=== PATIENT | male | born 1985 | race Asian ===

== ENCOUNTER 2024-09-17 17:14 | Emergency (ER) | payer MEDICAID ==
[~2024-09-17] VITALS: Ht 182.9 cm; Wt 75.0 kg
[2024-09-17 17:23] VITALS: O2SAT 98
[2024-09-17] MEDS: FAMOTIDINE 20MG/2ML VIAL IV ONE (17:45)
[2024-09-17] MEDS: ONDANSETRON HCL 4MG/2ML INJ IV ONE (17:45)
[2024-09-17 18:15] LABS: BASOPHILS % 0.9 % (0.0-2.0); EOSINOPHILS % 1.7 % (0.0-5.0); HEMATOCRIT. 48.2 % (42.0-52.0); HEMOGLOBIN. 16.9 g/dL (14.0-18.0); LYMPHOCYTES % 24.8 % (20.0-50.0); MEAN PLATELET VOLUME 9.1 fl (7.4-10.4); MONOCYTES % 6.6 % (2.0-8.0); NEUTROPHILS % 66.0 % (40.0-76.0); PLATELET 163 x1000/uL (130-400); RED BLOOD CELL COUNT 5.56 mill/uL (4.7-6.1); RED CELL DISTRIBUTION WIDTH 13.1 % (11.6-14.6)
[2024-09-17 18:27] LABS: INR 1.0
[2024-09-17 18:31] LABS: CREATININE 1.0 mg/dL (0.6-1.3)
[2024-09-17 18:32] LABS: UREA NITROGEN BLOOD < 5 mg/dL (9-23)
[2024-09-17 18:33] LABS: ASPARTATE AMINOTRANSFERASE 51 IU/L (<34); TROPONIN I HIGH SENSITIVITY < 4 ng/L (3.0-53)
[2024-09-17 18:34] LABS: BILIRUBIN DIRECT 0.7 mg/dL (<=3.0); BILIRUBIN TOTAL 2.1 mg/dL (0.1-1.0); PROTEIN TOTAL 7.2 g/dL (6.0-8.3)
[2024-09-17] MEDS: SODIUM CHLORIDE 0.9% 1,000 ML IV ONE (18:49)
[2024-09-17 20:52] LABS: CLARITY URINE CLEAR (CLEAR); COLOR URINE YELLOW (YELLOW); GLUCOSE URINE NEGATIVE (NEGATIVE); KETONES URINE 1+ (NEGATIVE); LEUKOCYTE ESTERASE URINE NEGATIVE (NEGATIVE); NITRITE URINE NEGATIVE (NEGATIVE); OCCULT BLOOD URINE NEGATIVE (NEGATIVE); PH URINE 6.0 (4.5-8.0); PROTEIN URINE NEGATIVE (NEGATIVE); SPECIFIC GRAVITY URINE 1.003 (1.005-1.030); UROBILINOGEN URINE 1.0 E.U./dL (0.2-1.0)
[2024-09-17 20:54] VITALS: TEMP 36.9
[2024-09-17] MEDS ORDERED: MAG355OR21 MT (23:12)
[2024-09-17] MEDS ORDERED: FAMO40TA70 MT (23:12)
[2024-09-17 23:25] VITALS: BP 116/77; PULSE 79; RESP 12; O2SAT 98
== END 2024-09-17 23:33 | disposition home or self-care (01) ==
LOC: ER 17:14
DX: K29.70 Gastritis, unspecified, without bleeding (principal); K21.9 Gastro-esophageal reflux disease without esophagitis; Z88.6 Allergy status to analgesic agent
CPT/HCPCS: 99291; 74176; 96374; 96361; 96375; 80076; 80048; 81003; 83690; 85025; 85610; 85730; 84484; 36415; 71045; 93005; J1308; J2405

== ENCOUNTER 2024-09-24 05:29 | Emergency (ER) | payer MEDICAID ==
[~2024-09-24] VITALS: Ht 182.9 cm; Wt 84.3 kg
[~2024-09-24 05:29] MED LIST: FAMO40TA70 MT; MAG355OR21 MT
[2024-09-24 05:34] VITALS: O2SAT 99
[2024-09-24 05:57] VITALS: TEMP 36.5
[2024-09-24 06:03] LABS: BASOPHILS % 0.9 % (0.0-2.0); EOSINOPHILS % 3.0 % (0.0-5.0); HEMATOCRIT. 47.6 % (42.0-52.0); HEMOGLOBIN. 16.6 g/dL (14.0-18.0); LYMPHOCYTES % 29.8 % (20.0-50.0); MEAN PLATELET VOLUME 9.4 fl (7.4-10.4); MONOCYTES % 7.9 % (2.0-8.0); NEUTROPHILS % 58.4 % (40.0-76.0); PLATELET 167 x1000/uL (130-400); RED BLOOD CELL COUNT 5.51 mill/uL (4.7-6.1); RED CELL DISTRIBUTION WIDTH 13.4 % (11.6-14.6)
[2024-09-24] MEDS: SODIUM CHLORIDE 0.9% 1,000 ML IV ONE (06:14)
[2024-09-24 06:27] LABS: CREATININE 0.9 mg/dL (0.6-1.3); UREA NITROGEN BLOOD 6 mg/dL (9-23)
[2024-09-24 06:28] LABS: TROPONIN I HIGH SENSITIVITY 5 ng/L (3.0-53)
[2024-09-24 06:44] LABS: CLARITY URINE CLEAR (CLEAR); COLOR URINE YELLOW (YELLOW); GLUCOSE URINE NEGATIVE (NEGATIVE); KETONES URINE 2+ (NEGATIVE); LEUKOCYTE ESTERASE URINE NEGATIVE (NEGATIVE); NITRITE URINE NEGATIVE (NEGATIVE); OCCULT BLOOD URINE NEGATIVE (NEGATIVE); PH URINE 6.5 (4.5-8.0); PROTEIN URINE NEGATIVE (NEGATIVE); SPECIFIC GRAVITY URINE 1.005 (1.005-1.030); UROBILINOGEN URINE 1.0 E.U./dL (0.2-1.0)
[2024-09-24 07:00] VITALS: BP 97/70; PULSE 75; RESP 18; O2SAT 98
== END 2024-09-24 07:19 | disposition home or self-care (01) ==
LOC: ER 05:29
DX: R42 Dizziness and giddiness (principal); R53.1 Weakness; K21.9 Gastro-esophageal reflux disease without esophagitis; I10 Essential (primary) hypertension; Z88.6 Allergy status to analgesic agent
CPT/HCPCS: 99285; 96360; 71045; 80048; 81003; 85025; 84484; 36415; 93005; J7030

== ENCOUNTER 2024-09-26 23:36 | Emergency (ER) | payer MEDICAID, MEDICARE ==
[~2024-09-26] VITALS: Ht 182.9 cm; Wt 71.3 kg
[2024-09-27 00:03] VITALS: O2SAT 100
[2024-09-27] MEDS: PANTOPRAZOLE 40MG DR TABLET PO ONE (01:00)
[2024-09-27] MEDS ORDERED: SUCRALFATE 1G TABLET PO SCH (01:00)
[2024-09-27] MEDS ORDERED: SUCR1TAB30 MT (01:11)
[2024-09-27] MEDS: MAGNESIUM/ALUMINUM HYDROXIDE/SIMETHICONE 30ML UDC PO ONE (02:34)
[2024-09-27] MEDS: ONDANSETRON 4MG ODT PO ONE (02:34)
[2024-09-27 02:42] VITALS: BP 116/75; PULSE 76; RESP 16; TEMP 36.5; O2SAT 99
[2024-09-27] MEDS: SUCRALFATE 1G TABLET PO NR (02:54)
[2024-09-27] MEDS: PANTOPRAZOLE 40MG DR TABLET PO NR (02:54)
[2024-09-27] MEDS: MAGNESIUM/ALUMINUM HYDROXIDE/SIMETHICONE 30ML UDC PO NR (02:54)
[2024-09-27] MEDS: ONDANSETRON 4MG ODT PO NR (02:54)
== END 2024-09-27 02:46 | disposition home or self-care (01) ==
LOC: ER 23:36
DX: K21.9 Gastro-esophageal reflux disease without esophagitis (principal); K29.00 Acute gastritis without bleeding; Z87.19 Personal history of other diseases of the digestive system; Z88.6 Allergy status to analgesic agent; Z79.899 Other long term (current) drug therapy
CPT/HCPCS: 99283; Q0162